=== PATIENT | female | born 1955 | race Two or more races ===

== ENCOUNTER 2018-11-26 21:59 | Emergency (ER) | payer OTHER ==
[~2018-11-26] VITALS: Ht 157.5 cm; Wt 65.8 kg
[~2018-11-26 21:59] MED LIST: IBUPROFEN600 MG ORAL; NKM; NORCO 5-325 TA1 EACH ORAL
[2018-11-26 22:07] VITALS: BP 123/75
--- NOTE | 2018-11-26 22:07 | NUR ---
ED Nurse Note: Pt arrived ED from home, c/o right foot had injury by a dog bite today. Pt is A/O X4. VSS, waiting for orders.
[2018-11-26] MEDS ORDERED: Augmentin 875mg Tab ORAL ONE (22:30)
--- NOTE | 2018-11-26 22:33 | Emergency Room Report ---
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 Denies any fevers or chills denies any rash patient has localized discomfort to the area Denies any knee pain patient was concerned about possible rabies Allergies: Coded Allergies: No Known Allergies (Unverified , 11/01/14) Patient History Past Medical History: see triage record Pertinent Family History: none Last Menstrual Period: 1989 Reviewed Nursing Documentation: PMH: Agreed; PSxH: Agreed Nursing Documentation-PMH Past Medical History: No Stated History Review of Systems All Other Systems: negative except mentioned in HPI Physical Exam Vital Signs Date Time Temp Pulse Resp B/P (MAP) Pulse Ox O2 Delivery O2 Flow Rate FiO2 11/26/18 22:01 98.2 86 16 121/76 (91) 96 Room Air Sp02 EP Interpretation: reviewed, normal General Appearance: well appearing, no apparent distress Head: normocephalic, atraumatic Eyes: bilateral eye PERRL, bilateral eye EOMI ENT: hearing grossly normal, normal pharynx, TMs + canals normal, uvula midline Neck: full range of motion, supple, no meningismus, no bony tend Respiratory: lungs clear, normal breath sounds, no rhonchi, no respiratory distress, no retraction, no accessory muscle use Cardiovascular #1: normal peripheral pulses, regular rate, rhythm, no edema, no gallop, no JVD, no murmur Gastrointestinal: normal bowel sounds, non tender, soft, no mass, no organomegaly, non-distended, no guarding, no hernia, no pulsatile mass, no rebound Genitourinary: no CVA tenderness Musculoskeletal: normal inspection Neurologic: oriented x3, responsive, hemodialysis technician III-XII nml as tested, motor strength/ tone normal, sensory intact Psychiatric: mood/affect normal Skin: other - Approximately 2 mm region on the right lateral ankle consistent with skin abrasion and likely dog bite mild swelling associated Lymphatic: normal inspection, no adenopathy Medical Decision Making Diagnostic Impression: Primary Impression: Dog bite ER Course Given the history and presentation my suspicion for rabies is low X-ray imaging is obtained given the minimal swelling no obvious acute fracture patient placed on antibiotics wound care provided and patient stable for close follow-up Other X-Ray Diagnostic Results Other X-Ray Diagnostic Results : X-Ray ordered: Right ankle # of Views/Limited Vs Complete: 3 View Indication: Pain EP Interpretation: Yes Interpretation: no dislocation, no soft tissue swelling, no fractures Impression: No acute disease Electronically Signed by: Oriana Womack DO Last Vital Signs Date Time Temp Pulse Resp B/P (MAP) Pulse Ox O2 Delivery O2 Flow Rate FiO2 11/26/18 22:07 98.2 84 16 123/75 96 Room Air Status: improved Disposition: HOME, SELF-CARE Condition: Improved Scripts Amoxicillin/Potassium Clav 875-125* (AUGMENTIN 875-125 TABLET*) 1 Each Tablet 1 TAB ORAL TWICE A DAY, #14 TAB Prov: Oriana Womack DO 11/26/18 Additional Instructions: Patient is provided with the discharge instructions notified to follow up with primary doctor in the next 2-3 days otherwise return to the er with any worsening symptoms. Please note that this report is being documented using DRAGON technology. This can lead to erroneous entry secondary to incorrect interpretation by the dictating instrument. Oriana Womack DO Nov 26, 2018 22:33
[2018-11-26] MEDS ORDERED: AUGMENTIN 875-1 EAC1 ORAL (22:41)
--- NOTE | 2018-11-26 22:50 | NUR ---
ED Nurse Note: Asked Dr. Amaro that Tetanus is not needed at this time.
[2018-11-26 22:55] VITALS: BP 123/75
--- NOTE | 2018-11-26 22:55 | NUR ---
ER DISCHARGE NOTE: Patient is cleared to be discharged per Dr. Womack. Pt is aox4 on room air with stable vital signs. Pt was given dc and prescription instructions and was able to verbalize understanding. Pt's ID band removed without. Pt is able to ambulate with steady gait and took all belongings.
--- NOTE | 2018-11-26 23:07 | Diagnostic Imaging Report ---
EXAM: XR Right Ankle Complete, 3 or More Views CLINICAL HISTORY: TRAUMA TECHNIQUE: Frontal, lateral and oblique views of the right ankle. COMPARISON: No relevant prior studies available. FINDINGS: Bones/joints: No acute fracture. No dislocation. Plantar and retrocalcaneal spurs are present. There is degenerative spurring at the anterior midfoot. Soft tissues: Soft tissue edema around the ankle. IMPRESSION: No acute fracture.
== END 2018-11-26 22:55 | disposition home or self-care (01) ==
LOC: EMR 22:30
DX: S91.051A Open bite, right ankle, initial encounter (principal); W54.0XXA Bitten by dog, initial encounter; Y92.9 Unspecified place or not applicable
CPT/HCPCS: 99283